=== PATIENT | female | born 1965 | race Caucasian/White ===

== ENCOUNTER 2019-08-24 15:24 | Emergency (ER) | payer MEDICAID ==
[~2019-08-24] VITALS: Ht 167.6 cm; Wt 65.0 kg
[2019-08-24 15:31] VITALS: BP 124/76
== END 2019-08-24 17:11 | disposition home or self-care (01) ==
LOC: ER 15:25
DX: S62.101A Fracture of unspecified carpal bone, right wrist, initial encounter for closed fracture (principal); Z88.0 Allergy status to penicillin; W10.9XXA Fall (on) (from) unspecified stairs and steps, initial encounter; Y93.89 Activity, other specified; Y92.89 Other specified places as the place of occurrence of the external cause; Y99.8 Other external cause status
CPT/HCPCS: 29125; 73110; 73130; 99284

== ENCOUNTER 2025-05-01 08:40 | Outpatient (CLI) | payer OTHER ==
--- NOTE | 2025-05-01 10:56 | RADIOLOGY REPORT ---
EXAMINATION: MR MRI HEAD INDICATION: UNSPECIFIED SYNOVITIS AND TENOSYNOVITIS, UNSPECIFIED SITE COMPARISON: None TECHNIQUE: Multiplanar, multisequence magnetic resonance imaging of the brain was performed without the use of intravenous contrast. FINDINGS: No evidence of acute or remote infarct. No intracranial hemorrhage. No mass effect. There is periventricular/deep white matter T2/FLAIR hyperintensity is nonspecific, but most commonly associated with chronic microvascular disease. The ventricles and sulci are normal in size for age. Clear basal cisterns. Flow voids in the major intracranial vessels are maintained. No abnormality of the orbits. Paranasal sinuses and mastoid air cells are clear. No abnormality of the visualized osseous structures and extracranial soft tissues. IMPRESSION: No acute infarct, intracranial hemorrhage, mass effect, or hydrocephalus.
--- NOTE | 2025-05-01 11:14 | RADIOLOGY REPORT ---
PROCEDURE: MR MRI C SPINE INDICATION: UNSPECIFIED SYNOVITIS AND TENOSYNOVITIS, UNSPECIFIED SITE EXAM DATE: 05/01/2025 09:14 AM COMPARISON: None TECHNIQUE: MRI cervical spine with and without 12 mL Clariscan gadolinium IV contrast. FINDINGS: No fracture or listhesis of the cervical spine. There is mild cervical degenerative disc disease and facet arthropathy. No high-grade spinal canal stenosis or neural foraminal stenosis at any level in the cervical spine. There is 3 mm cerebellar tonsillar ectopia without evidence of Chiari I malformation. No abnormal signal in the cervical spinal cord. There is palatine and lingual tonsillar hypertrophy without significant airway narrowing. IMPRESSION: 1. No fracture of the cervical spine. 2. Mild degenerative disc disease and facet arthropathy without significant spinal canal stenosis or neural foraminal stenosis at any level in the cervical spine. 3. Tonsillar hypertrophy without significant airway narrowing.
[2025-05-01] MEDS ORDERED: GADOTERATE MEGLUMINE 7.5 MMOL/15 ML VIAL IV ONE (15:10)
== END 2025-05-01 23:59 | disposition home or self-care (01) ==
LOC: MRI 08:40
PROVIDERS: ATTEND Psychiatry & Neurology Neurology
DX: T14.8XXA Other injury of unspecified body region, initial encounter (principal); M65.90 Unspecified synovitis and tenosynovitis, unspecified site; R20.2 Paresthesia of skin; M72.0 Palmar fascial fibromatosis [Dupuytren]; X58.XXXA Exposure to other specified factors, initial encounter; Y93.89 Activity, other specified; Y92.89 Other specified places as the place of occurrence of the external cause; Y99.8 Other external cause status
CPT/HCPCS: 70553; 72156; A9575